=== PATIENT | female | born 1970 | race Caucasian/White ===

== ENCOUNTER 2022-06-28 07:52 | Day surgery (SDC) | payer BC, OTHER ==
[2022-06-28] MEDS ORDERED: Lactated Ringers 1,000 ML IV SCH (08:30)
[2022-06-28] MEDS ORDERED: Propofol 200 MG/20 ML SDV ONE (09:05)
[2022-06-28] MEDS ORDERED: fentaNYL 50 MCG/ML SDV ONE (09:05)
[2022-06-28] MEDS ORDERED: Midazolam 1 MG/ML 2 ML SDV ONE (09:05)
== END 2022-06-28 11:51 | disposition home or self-care (01) ==
LOC: JP.SDS 07:52
PROVIDERS: ATTEND Student in an Organized Health Care Education/Training Program
DX: Z12.11 Encounter for screening for malignant neoplasm of colon (principal); K63.5 Polyp of colon; I10 Essential (primary) hypertension; F41.9 Anxiety disorder, unspecified; I51.89 Other ill-defined heart diseases; Z86.73 Personal history of transient ischemic attack (TIA), and cerebral infarction without residual deficits; Z88.1 Allergy status to other antibiotic agents
CPT/HCPCS: 45380; 81025; 88305; J2250; J2704; J3010; J7120